=== PATIENT | female | born 1990 | race Caucasian/White ===

== ENCOUNTER 2021-11-30 18:03 | Emergency (ER) | payer MEDICAID ==
[~2021-11-30] VITALS: Ht 152.4 cm; Wt 90.7 kg
[2021-11-30 18:03] VITALS: BP_SYST 105
--- NOTE | 2021-11-30 18:03 | NUR ---
BROUGHT INTO BED #8 AND TRIAGED. REPORT GIVEN TO SADI
[2021-11-30] MEDS ORDERED: predniSONE 20 MG TABLET PO ONE (18:15)
[2021-11-30] MEDS ORDERED: IPRATROPIUM/ALBUTEROL SULFATE 3 ML AMPUL.NEB (DUONEB) INH ONE (18:15)
--- NOTE | 2021-11-30 20:00 | NUR ---
Pt ambulatory to ED from home with c/o worsening SOB, cough, and congestion which has been previously treated with 3 rounds of ATB but no improvement noted. Pt uses inhaler at home with minimal relief. Pt denies fever, chills, N&V, or any other symptoms at this time. Pt is in NAD, breathing adequately on RA, VSS.
[2021-11-30] MEDS ORDERED: PRED20TA PO (20:09)
[2021-11-30] MEDS ORDERED: ALBUTEROL SULFATE 0.083% 2.5 MG/3 ML VIAL.NEB INH ONE (20:15)
--- NOTE | 2021-11-30 20:16 | NUR ---
COVID YOHAN swab collected and sent to lab.
--- NOTE | 2021-11-30 20:25 | NUR ---
RT at bedside for medication administration.
[2021-11-30 20:54] VITALS: BP_SYST 130
--- NOTE | 2021-11-30 20:55 | NUR ---
Patient given written and verbal discharge instructions and verbalizes understanding. ER MD HOLDER discussed with patient the results and treatment provided. Patient in stable condition. ID arm band removed. Rx of Prednisone sent to pharmacy of choice. Patient educated on pain management and to follow up with PMD. Pain Scale 1/10 Opportunity for questions provided and answered. Medication side effect fact sheet provided.
== END 2021-11-30 20:54 | disposition home or self-care (01) ==
LOC: SED 18:03
DX: J40 Bronchitis, not specified as acute or chronic (principal); R06.02 Shortness of breath; R05.9 Cough, unspecified; Z79.899 Other long term (current) drug therapy; Z20.822 Contact with and (suspected) exposure to COVID-19
CPT/HCPCS: 36415; 93005; 71045; 94640; 99285; 87426; J7512; J7613

== ENCOUNTER 2023-01-21 16:28 | Emergency (ER) | payer MEDICAID ==
[~2023-01-21] VITALS: Ht 152.4 cm; Wt 90.7 kg
[~2023-01-21 16:28] MED LIST: PRED20TA PO
[2023-01-21 16:35] VITALS: BP_SYST 130; PULSE 85; RESP 20; TEMP 98.3; O2SAT 98
[2023-01-21] MEDS ORDERED: guaiFENesin/DEXTROMETHORPHAN 10 ML UDC PO ONE (16:45)
[2023-01-21] MEDS ORDERED: BENZONATATE 100 MG CAPSULE (TESSALON) PO ONE (16:45)
[2023-01-21 17:14] LABS: INFLUENZA TYPE A NEGATIVE (NEGATIVE); INFLUENZA TYPE B NEGATIVE (NEGATIVE); RESPIRATORY SYNCYTIAL VIRUS NEGATIVE (NEGATIVE)
[2023-01-21] MEDS ORDERED: BENZ100C92 PO (17:58)
[2023-01-21] MEDS ORDERED: ZIT250 PO (17:58)
[2023-01-21] MEDS ORDERED: IBUP-1971 PO (17:58)
[2023-01-21 18:44] VITALS: BP_SYST 132; PULSE 82; RESP 20; TEMP 98.1; O2SAT 96
== END 2023-01-21 18:30 | disposition home or self-care (01) ==
LOC: SED 16:28
DX: J40 Bronchitis, not specified as acute or chronic (principal); J06.9 Acute upper respiratory infection, unspecified; R05.9 Cough, unspecified; R09.81 Nasal congestion; Z79.899 Other long term (current) drug therapy; Z20.822 Contact with and (suspected) exposure to COVID-19
CPT/HCPCS: 36415; 71045; 87420; 99284